=== PATIENT | female | born 1995 | race Asian ===

== ENCOUNTER 2018-06-30 22:58 | Emergency (ER) | payer SELFPAY ==
[~2018-06-30] VITALS: Ht 152.4 cm; Wt 45.4 kg
--- NOTE | 2018-06-30 23:10 | NUR ---
ED Nurse Note: Patient BIBA RA 66 with [employer] from [facility] c/o behavioral complaint. Patient is refusing to answer questions in triage. 5150. Sitter at bedside.
--- NOTE | 2018-06-30 23:15 | NUR ---
ED Nurse Note: IV access established. Blood and urine collected; sent down to lab .
[2018-06-30 23:22] VITALS: BP 125/76
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
[2018-06-30 23:26] LABS: EOSINOPHILS % (AUTO) 0.6 % (0.0-3.0); HEMATOCRIT 40.8 % (37.0-47.0); HEMOGLOBIN 12.7 G/DL (12.0-16.0); LYMPHOCYTES % (AUTO) 42.2 % (20.0-45.0); MEAN CORPUSCULAR VOLUME 71 FL (80-99); MONOCYTES % (AUTO) 6.8 % (1.0-10.0); NEUTROPHILS % (AUTO) 49.4 % (45.0-75.0); PLATELET COUNT 251 K/UL (150-450); RED BLOOD COUNT 5.77 M/UL (4.20-5.40); RED CELL DISTRIBUTION WIDTH 12.3 % (11.6-14.8); WHITE BLOOD COUNT 10.1 K/UL (4.8-10.8)
[2018-06-30 23:27] LABS: APPEARANCE,URINE CLEAR; BILIRUBIN, URINE NEGATIVE (NEGATIVE); COLOR,URINE PALE YELLOW; GLUCOSE, URINE (UA) NEGATIVE (NEGATIVE); KETONES,URINE 2+ (NEGATIVE); LEUKOCYTE ESTERASE ,URINE 1+ (NEGATIVE); NITRITE,URINE NEGATIVE (NEGATIVE); PH,URINE 6 (4.5-8.0); PROTEIN,URINE NEGATIVE (NEGATIVE); UROBILINOGEN,URINE NORMAL MG/DL (0.0-1.0)
[2018-06-30 23:37] LABS: ANION GAP 11 mmol/L (5-15); BLOOD UREA NITROGEN 18 mg/dL (7-18); CALCIUM 9.5 MG/DL (8.5-10.1); CARBON DIOXIDE 25 MMOL/L (21-32); CHLORIDE 102 MMOL/L (98-107); POTASSIUM 4.2 MMOL/L (3.5-5.1); SODIUM 138 MMOL/L (136-145)
[2018-06-30 23:41] LABS: ALANINE AMINOTRANSFERASE 22 U/L (12-78); ALBUMIN 4.2 G/DL (3.4-5.0); ALKALINE PHOSPHATASE 80 U/L (46-116); ASPARTATE AMINO TRANSFERASE 15 U/L (15-37); BILIRUBIN,TOTAL 0.2 MG/DL (0.2-1.0)
[2018-06-30] MEDS ORDERED: cefTRIAXone 1 GM in NS 55 ML IVPB ONE (23:45)
--- NOTE | 2018-07-01 | NUR ---
ED Nurse Note: belongings list completed with discharge planner. locked in locker #2
--- NOTE | 2018-07-01 02:00 | NUR ---
ED Nurse Note: Patient awake. AO4. NAD. Provided sandwich and juice.
[2018-07-01] MEDS ORDERED: Solu-MEDROL 125mg Inj IVP ONE (04:00)
[2018-07-01] MEDS ORDERED: Albuterol ud Inhalation HHN ONE (04:00)
--- NOTE | 2018-07-01 05:04 | NUR ---
ED Nurse Note: Gave report to ARNAUD Pete of [facility]. Patient to be admitted to [facility] under the care of MD Kenneth.
[2018-07-01 05:28] VITALS: BP 112/69
--- NOTE | 2018-07-01 07:21 | NUR ---
HAND-OFF: Report given to ARNAUD Brown. Patient in stable condition. Plan of care endorsed.
--- NOTE | 2018-07-01 07:24 | NUR ---
ED Nurse Note: Report received from Mark Prado RN. Waiting for transportation for pt. Pt in bed asleep comfortably. Sitter at the bedside.
--- NOTE | 2018-07-01 07:32 | NUR ---
ED Nurse Note: Gave report to [facility]. Notified pt of transfer.
[2018-07-01 07:44] VITALS: BP 95/57
--- NOTE | 2018-07-01 07:44 | NUR ---
ED Nurse Note: Pt left for transfer via [facility]. No acute distress noted. No complaints of pain. Left ER w/ all belonings.
== END 2018-07-01 07:44 ==
LOC: EDBD 22:58 → EMR 23:15
DX: F91.8 Other conduct disorders (principal); N39.0 Urinary tract infection, site not specified
CPT/HCPCS: 36415; 80053; 80307; 81003; 81025; 85025; 87086; 87181; 96365; 96375; 99285; G0480; J0696; 80329